=== PATIENT | female | born 1985 | race Caucasian/White ===

== ENCOUNTER 2023-01-28 09:54 | Emergency (ER) | payer OTHER ==
[~2023-01-28] VITALS: Ht 167 cm; Wt 88.0 kg
[2023-01-28] MEDS ORDERED: fentaNYL INJECTION 100 MCG/2 ML VIAL IVP ONE (10:15)
[2023-01-28 10:21] LABS: BASOPHILS # (AUTO) 0.1 10^3/uL (0.0-0.1); BASOPHILS % (AUTO) 1 % (0-10); EOSINOPHILS # (AUTO) 0.5 10^3/uL (0.0-0.3); EOSINOPHILS % (AUTO) 6 % (0-10); HEMATOCRIT 42 % (35-52); HEMOGLOBIN 13.5 g/dL (11.5-16.0); LYMPHOCYTES # (AUTO) 2.3 10^3/uL (1.0-4.0); LYMPHOCYTES % (AUTO) 30 % (12-44); MEAN CORPUSCULAR HEMOGLOBIN 30 pg (25-34); MEAN CORPUSCULAR HGB CONC 32 g/dL (32-36); MEAN CORPUSCULAR VOLUME 92 fL (80-99); MEAN PLATELET VOLUME 9.8 fL (9.0-12.2); MONOCYTES # (AUTO) 0.7 10^3/uL (0.0-1.0); MONOCYTES % (AUTO) 9 % (0-12); NEUTROPHILS # (AUTO) 4.3 10^3/uL (1.8-7.8); NEUTROPHILS % (AUTO) 54 % (42-75); PLATELET COUNT 331 10^3/uL (130-400); WHITE BLOOD COUNT 7.9 10^3/uL (4.3-11.0)
[2023-01-28 10:34] LABS: ALANINE AMINOTRANSFERASE 17 U/L (0-55); ALBUMIN 4.3 GM/DL (3.2-4.5); ALKALINE PHOSPHATASE 51 U/L (40-136); BILIRUBIN,TOTAL 0.3 MG/DL (0.1-1.0); BUN/CREATININE RATIO 14; CALCIUM 9.3 MG/DL (8.5-10.1); CARBON DIOXIDE 25 MMOL/L (21-32); CHLORIDE 105 MMOL/L (98-107); CREATININE SERUM 0.99 MG/DL (0.60-1.30); GFR ESTIMATED 74; GLUCOSE 98 MG/DL (70-105); MAGNESIUM 2.2 MG/DL (1.6-2.4); POTASSIUM 4.1 MMOL/L (3.6-5.0); SODIUM 140 MMOL/L (135-145)
[2023-01-28 10:44] LABS: AMPHETAMINE SCREEN, URINE NEGATIVE (NEGATIVE); BARBITURATE SCREEN URINE NEGATIVE (NEGATIVE); BENZODIAZEPINES SCREEN URINE NEGATIVE (NEGATIVE); CANNABINOID SCREEN, URINE NEGATIVE (NEGATIVE); COCAINE SCREEN URINE NEGATIVE (NEGATIVE); METHADONE STAT NEGATIVE (NEGATIVE); OPIATE SCREEN URINE POSITIVE (NEGATIVE); OXYCODONE STAT NEGATIVE (NEGATIVE); PROPOXYPHENE STAT NEGATIVE (NEGATIVE); TRICYCLIC ANTIDEPRESSANTS SCRE NEGATIVE (NEGATIVE)
[2023-01-28 10:45] LABS: ERYTHROCYTE SEDIMENTATION RATE 45 MM/HR (0-20)
--- NOTE | 2023-01-28 10:48 | Diagnostic Imaging Report ---
PROCEDURE: CT head without contrast. TECHNIQUE: Multiple contiguous axial images were obtained through the brain without the use of intravenous contrast. Auto Exposure Controls were utilized during the CT exam to meet ALARA standards for radiation dose reduction. INDICATION: Increasing head pain as well as lower abdominal pain. No prior studies are available for comparison. Ventricles and sulci are within normal limits. No sulcal effacement or midline shift is identified. No acute intra-axial or extra-axial hemorrhage is detected. Cisterns are patent. Visualized paranasal sinuses are clear. IMPRESSION: No acute intracranial process is detected. Dictated by: Dictated on workstation # [id number]
[2023-01-28 10:56] LABS: CLARITY,URINE CLEAR; COLOR,URINE YELLOW; GLUCOSE, URINE (UA) NEGATIVE (NEGATIVE); PH,URINE 5.5 (5-9); PROTEIN,URINE NEGATIVE (NEGATIVE)
[2023-01-28 10:57] LABS: AMORPHOUS SEDIMENT,UR FEW AMOR URATES /LPF; BACTERIA,URINE MODERATE /HPF; BILIRUBIN,URINE NEGATIVE (NEGATIVE); KETONES,URINE NEGATIVE (NEGATIVE); LEUKOCYTE ESTERASE ,URINE 2+ (NEGATIVE); NITRITE,URINE NEGATIVE (NEGATIVE)
--- NOTE | 2023-01-28 13:14 | ED Neurological Problem ---
General Chief Complaint: Head/Cervical Problems Stated Complaint: DIZZINESS Nursing Triage Note: PT PRSENTS TO ED VIA EMS FROMWORK WITH COMPLAINTS OF CONTINUED ALAMO, DZZINESS, FATIGE SINCE SHEE WAS LAYING DOWN MONDAY 01/22 AND HER DOG JUMPED AND LANDED ON HER HEAD. PT WAS SEEN BY URGENT CARE ON WEDNESDAY AND GIVEN PHENERGAN, TORADOL, AND FLUIDS BUT REPORTS NO IMPROVEMENT Source: patient, other (Clinic notes and PCP report) Exam Limitations: no limitations Allergies and Home Medications Allergies Coded Allergies: No Known Drug Allergies (Unverified , 01/28/23) Past Mnywvri-Xzxkmq-Kwyaas Hx Patient Social History Tobacco Use?: No Substance use?: No Alcohol Use?: No Pt feels they are or have been: No Past Medical History Surgery/Hospitalization HX: DEPRESSION, HYPERLIPEDEMIA, SKIN CA. SX: SKIN CA REMOVAL FROM [place], DISECTOMY, HEMILAMINECTOMY Physical Exam Vital Signs Vital Signs - First Documented 01/28/23 09:54 Temp 36.2 Pulse 82 Resp 16 B/P (MAP) 142/95 (111) Pulse Ox 100 Capillary Refill : Less Than 3 Seconds Height, Weight, BMI Height: '" Weight: lbs. oz. kg; 31.00 BMI Method: Progress/Results/Core Measures Results/Orders Lab Results Laboratory Tests Test 01/28/23 09:58 01/28/23 10:24 Range/Units White Blood Count 7.9 4.3-11.0 10^3/uL Red Blood Count 4.55 3.80-5.11 10^6/uL Hemoglobin 13.5 11.5-16.0 g/dL Hematocrit 42 35-52 % Mean Corpuscular Volume 92 80-99 fL Mean Corpuscular Hemoglobin 30 25-34 pg Mean Corpuscular Hemoglobin Concent 32 32-36 g/dL Red Cell Distribution Width 12.2 10.0-14.5 % Platelet Count 331 130-400 10^3/uL Mean Platelet Volume 9.8 9.0-12.2 fL Immature Granulocyte % (Auto) 0 % Neutrophils (%) (Auto) 54 42-75 % Lymphocytes (%) (Auto) 30 12-44 % Monocytes (%) (Auto) 9 0-12 % Eosinophils (%) (Auto) 6 0-10 % Basophils (%) (Auto) 1 0-10 % Neutrophils # (Auto) 4.3 1.8-7.8 10^3/uL Lymphocytes # (Auto) 2.3 1.0-4.0 10^3/uL Monocytes # (Auto) 0.7 0.0-1.0 10^3/uL Eosinophils # (Auto) 0.5 H 0.0-0.3 10^3/uL Basophils # (Auto) 0.1 0.0-0.1 10^3/uL Immature Granulocyte # (Auto) 0.0 0.0-0.1 10^3/uL Erythrocyte Sedimentation Rate 45 H 0-20 MM/HR Sodium Level 140 135-145 MMOL/L Potassium Level 4.1 3.6-5.0 MMOL/L Chloride Level 105 98-107 MMOL/L Carbon Dioxide Level 25 21-32 MMOL/L Anion Gap 10 5-14 MMOL/L Blood Urea Nitrogen 14 7-18 MG/DL Creatinine 0.99 0.60-1.30 MG/DL Estimat Glomerular Filtration Rate 74 BUN/Creatinine Ratio 14 Glucose Level 98 70-105 MG/DL Calcium Level 9.3 8.5-10.1 MG/DL Corrected Calcium 9.1 8.5-10.1 MG/DL Magnesium Level 2.2 1.6-2.4 MG/DL Total Bilirubin 0.3 0.1-1.0 MG/DL Aspartate Amino Transf (AST/SGOT) 16 5-34 U/L Alanine Aminotransferase (ALT/SGPT) 17 0-55 U/L Alkaline Phosphatase 51 40-136 U/L C-Reactive Protein High Sensitivity 0.08 0.00-0.50 MG/DL Total Protein 8.0 6.4-8.2 GM/DL Albumin 4.3 3.2-4.5 GM/DL Serum Test, Qualitative NEGATIVE NEGATIVE Serum Alcohol < 10 <10 MG/DL Urine Color YELLOW Urine Clarity CLEAR Urine pH 5.5 5-9 Urine Specific [place] <=1.005 1.016-1.022 Urine Protein NEGATIVE NEGATIVE Urine Glucose (UA) NEGATIVE NEGATIVE Urine Ketones NEGATIVE NEGATIVE Urine Nitrite NEGATIVE NEGATIVE Urine Bilirubin NEGATIVE NEGATIVE Urine Urobilinogen 0.2 < = 1.0 MG/DL Urine Leukocyte Esterase 2+ H NEGATIVE Urine RBC (Auto) 2+ H NEGATIVE Urine RBC 5-10 H /HPF Urine WBC 5-10 H /HPF Urine Squamous Epithelial Cells 10-25 H /HPF Urine Crystals PRESENT H /LPF Urine Amorphous Sediment FEW FERCHO URATES H /LPF Urine Bacteria MODERATE H /HPF Urine Casts NONE /LPF Urine Mucus NEGATIVE /LPF Urine Trichomonas /HPF Urine Culture Indicated YES Urine Opiates Screen POSITIVE H NEGATIVE Urine Oxycodone Screen NEGATIVE NEGATIVE Urine Methadone Screen NEGATIVE NEGATIVE Urine Propoxyphene Screen NEGATIVE NEGATIVE Urine Barbiturates Screen NEGATIVE NEGATIVE Ur Tricyclic Antidepressants Screen NEGATIVE NEGATIVE Urine Phencyclidine Screen NEGATIVE NEGATIVE Urine Amphetamines Screen NEGATIVE NEGATIVE Urine Methamphetamines Screen NEGATIVE NEGATIVE Urine Benzodiazepines Screen NEGATIVE NEGATIVE Urine Cocaine Screen NEGATIVE NEGATIVE Urine Cannabinoids Screen NEGATIVE NEGATIVE My Orders Orders - ERICKA DOWD MD Fentanyl Injection (Fentanyl Injection (01/28/23 10:15) Ct Head Wo (01/28/23 10:08) Alcohol (01/28/23 10:12) Cbc With Automated Diff (01/28/23 10:12) Comprehensive Metabolic Panel (01/28/23 10:12) Hs C Reactive Protein (01/28/23 10:12) Erythrocyte Sedimentation Rate (01/28/23 10:12) Drug Screen Stat (Urine) (01/28/23 10:12) Hcg,Qualitative Serum (01/28/23 10:12) Magnesium (01/28/23 10:12) Ua Culture If Indicated (01/28/23 10:12) Ed Iv/Invasive Line Start (01/28/23 10:12) Urine Culture (01/28/23 10:24) Ondansetron Injection (Ondansetron Inj (01/28/23 13:15) Mri Brain W/Wo Contrast (01/28/23 13:02) Gadoterate Inj (Radiology) (Clariscan In (01/28/23 13:15) Ketorolac Injection (Ketorolac Injection (01/28/23 15:00) Medications Given in ED Current Medications Medications Dose Ordered Sig/Devin Route Start Time Stop Time Status Last Admin Dose Admin Fentanyl Citrate 50 mcg ONCE ONCE IVP 01/28/23 10:15 01/28/23 10:16 DC 01/28/23 10:29 50 MCG Gadoterate Meglumine 20 ml ONCE ONCE IV 01/28/23 13:15 01/28/23 13:16 DC 01/28/23 13:27 18 ML Ondansetron HCl 8 mg ONCE ONCE IVP 01/28/23 13:15 01/28/23 13:16 DC 01/28/23 13:13 8 MG Vital Signs/I&O 01/28/23 09:54 Temp 36.2 Pulse 82 Resp 16 B/P (MAP) 142/95 (111) Pulse Ox 100 Blood Pressure Mean: 111 Departure Impression Primary Impression: Concussion without loss of consciousness Qualified Codes: S06.0X0A - Concussion without loss of consciousness, initial encounter Additional Impressions: Nausea Disequilibrium Disposition: 01 HOME, SELF-CARE Condition: Stable Departure-Patient Inst. Decision time for Depature: 15:02 Referrals: JAYDA MCGRATH DO (PCP/Family) Primary Care Physician Patient Instructions: Concussion, Adult ED Add. Discharge Instructions: Drink plenty of clear liquids to stay well hydrated. You may take ibuprofen up to 600 mg every 6 hours and/or Tylenol (acetaminophen) up to 1000 mg every 6 hours as needed for pain. You may use your existing hydrocodone for severe pain and discuss further management of pain with Dr. Mcgrath. Use Zofran (ondansetron) as prescribed for nausea and vomiting. Get plenty of rest, including cognitive rest. This means also limiting screen time, reading, noises, music, conversations, etc. If any activity causes worsening concussion symptoms, stop that activity and rest. Avoid any activity that could predispose you to further head injury until cleared by a physician. Such activities might include using ladders, working with large animals, bike riding, sports, etc. Return to care if you have worsening symptoms despite following these instructions. Discuss return to work with Dr. Mcgrath. All discharge instructions reviewed with patient and/or family. Voiced understanding. Scripts Ondansetron (Ondansetron Odt) 4 Mg Tab.rapdis 4 MG SL Q4H PRN for NAUSEA/VOMITING, #20 TAB Prov: ERICKA DOWD MD 01/28/23 Work/School Note: Work Release Form Date Seen in the Emergency Department: Jan 28, 2023 Restrictions: Need Release from Doctor Copy Copies To 1: JAYDA MCGARTH JOSHUA T MD Jan 28, 2023 13:14
[2023-01-28] MEDS ORDERED: ONDANSETRON INJECTION 4 MG/2 ML (SDV) IVP ONE (13:15)
[2023-01-28] MEDS ORDERED: GADOTERATE 0.5 MMOL/ML (CLARISCAN) 20 ML VIAL IV ONE (13:15)
--- NOTE | 2023-01-28 13:59 | Diagnostic Imaging Report ---
PROCEDURE: MR imaging of the brain with and without contrast. TECHNIQUE: Multiplanar, multisequence MR imaging of the brain was performed with and without contrast. INDICATION: Head injury with acute confusion and disequilibrium. FINDINGS: Ventricles and sulci are within normal limits for size. Parsons and white matter signal intensities are unremarkable. There is no restricted diffusion to indicate an infarct. There is no abnormal mass effect or shift of midline structures. There is no MRI evidence of hemorrhage. No abnormal contrast enhancement is seen. Mastoid air cells are clear. No inner ear structural abnormality is seen. Flow-voids are seen in the expected locations at skull base. IMPRESSION: Unremarkable MRI of the brain. Dictated by: Dictated on workstation # [id number]
[2023-01-28] MEDS ORDERED: KETOROLAC INJ 30 MG/ML VIAL IVP ONE (15:00)
[2023-01-28 15:07] VITALS: BP 120/82
[2023-01-28] MEDS ORDERED: ONDA4TAB11 SL (15:10)
== END 2023-01-28 15:17 | disposition home or self-care (01) ==
LOC: ER 10:00
DX: S06.0X0A Concussion without loss of consciousness, initial encounter (principal); W54.1XXA Struck by dog, initial encounter
CPT/HCPCS: 36415; 70450; 70553; 80053; 80306; 80320; 81000; 83735; 84703; 85025; 85652; 86141; 87088